=== PATIENT | female | born 1990 | race Two or more races ===

== ENCOUNTER → 2018-11-23 | Emergency (ER) | payer OTHER ==
[~2018-11-23] VITALS: Ht 170.2 cm; Wt 68.0 kg
[~2018-11-23] MED LIST: FIORICET TABLET1 TAB; NORFLEX100 MG PO; PEPCID20 MG PO; TENCON TABLET1 TAB PO; TORADOL10 MG PO; ZOFRAN4 MG PO
== END | disposition left against medical advice (07) ==
LOC: ER 10:58
DX: R10.2 Pelvic and perineal pain (principal)

== ENCOUNTER 2024-12-14 19:06 | Inpatient (IN) | payer OTHER ==
[~2024-12-14] VITALS: Ht 170.2 cm; Wt 65.8 kg
[2024-12-14] MEDS ORDERED: LOSARTAN POTASS25 MG (19:21)
[2024-12-14] MEDS ORDERED: ORPHENADRINE CITRATE 30 MG/ML AMPUL IM ONE (20:30)
[2024-12-14] MEDS ORDERED: KETOROLAC TROMETHAMINE 60 MG VIAL IM ONE ×2 (20:30→21:15)
[2024-12-14] MEDS ORDERED: ORPHENADRINE CITRATE 30 MG/ML AMPUL ONE (21:15)
[2024-12-14 22:08] LABS: BASO % 0.3 % (0.1-1.2); EOS # 0.04 (0.04-0.54); EOS % 0.3 % (0.7-7.0); HEMATOCRIT 36.3 % (34.1-44.9); HEMOGLOBIN 12.3 g/dL (11.2-15.7); LYMPH # 1.35 (1.18-3.74); LYMPH % 11.3 % (19.3-53.1); MEAN CORPUSCULAR HEMOGLOBIN 28.2 pg (25.6-32.2); MONO # 0.82 (0.24-0.82); MONO % 6.8 % (4.7-12.5); NEUT # 9.72 (1.56-6.13); PLATELET COUNT 258 K/uL (163-369); RED BLOOD COUNT 4.36 M/uL (3.93-5.22); RED CELL DISTRIBUTION WIDTH 13.1 % (11.6-14.4)
[2024-12-14 22:29] LABS: INR 1.05; PROTHROMBIN TIME 11.4 SECONDS (9.0-11.5)
[2024-12-14 22:39] LABS: URINE APPEARANCE Clear; URINE BILIRRUBIN Negative (NEGATIVE); URINE BLOOD Negative; URINE COLOR Yellow; URINE GLUCOSE Negative (NEGATIVE); URINE KETONE Negative (NEGATIVE); URINE LEUKOCYTE Negative; URINE NITRATE Negative; URINE PROTEIN Negative (NEGATIVE); URINE UROBILINOGEN 0.2 E.U./dl
[2024-12-14 22:42] LABS: URINE BACTERIA 227.6 uL (0.0-1933); URINE EPITHELIAL CELLS 7.7 uL (0.0-38.8); URINE RBC 2.7 uL (0.0-20.8)
[2024-12-14 22:54] LABS: ALBUMIN 3.6 gm/dL (3.4-5.0); BILIRUBIN TOTAL 0.78 mg/dL (0.3-1.2); CALCIUM 8.7 mg/dL (8.5-10.1); CREATININE SERUM 0.98 mg/dL (0.55-1.02); GFR 64.21; GLOBULINA 4.2 G/DL (2.4-3.5); POTASSIUM 3.87 mEq/L (3.5-5.1); TOTAL PROTEIN 7.8 gm/dL (6.4-8.2); URINE WBC 0.9 uL (0.0-23.2)
[2024-12-14] MEDS ORDERED: PIPERACILLIN/TAZOBACTAM SODIUM 3.375 GM VIAL IV ONE ×2 (23:22→23:30)
[2024-12-14] MEDS ORDERED: 0.9 % SODIUM CHLORIDE 1,000 ML IV ONE (23:30)
[2024-12-14 23:57] VITALS: O2SAT 97
[2024-12-15] MEDS ORDERED: MORPHINE SULFATE 4 MG/ML VIAL IV PRN (02:00)
[2024-12-15 05:00] VITALS: BP 116/83
[2024-12-15 05:10] LABS: BASO % 0.3 % (0.1-1.2); EOS # 0.06 (0.04-0.54); EOS % 0.7 % (0.7-7.0); HEMATOCRIT 34.3 % (34.1-44.9); HEMOGLOBIN 11.4 g/dL (11.2-15.7); LYMPH # 1.77 (1.18-3.74); LYMPH % 19.4 % (19.3-53.1); MEAN CORPUSCULAR HEMOGLOBIN 28.3 pg (25.6-32.2); MONO # 0.79 (0.24-0.82); MONO % 8.7 % (4.7-12.5); NEUT # 6.44 (1.56-6.13); NEUT % 70.7 % (34.0-71.1); PLATELET COUNT 234 K/uL (163-369); RED BLOOD COUNT 4.03 M/uL (3.93-5.22); RED CELL DISTRIBUTION WIDTH 13.2 % (11.6-14.4)
[2024-12-15 08:00] VITALS: BP 112/71
[2024-12-15 11:40] LABS: BASO % 0.3 % (0.1-1.2); EOS # 0.07 (0.04-0.54); EOS % 1.1 % (0.7-7.0); HEMATOCRIT 33.3 % (34.1-44.9); HEMOGLOBIN 11.2 g/dL (11.2-15.7); LYMPH # 1.07 (1.18-3.74); LYMPH % 17.4 % (19.3-53.1); MEAN CORPUSCULAR HEMOGLOBIN 28.3 pg (25.6-32.2); MONO % 9.8 % (4.7-12.5); NEUT # 4.37 (1.56-6.13); NEUT % 71.1 % (34.0-71.1); PLATELET COUNT 200 K/uL (163-369); RED BLOOD COUNT 3.96 M/uL (3.93-5.22); RED CELL DISTRIBUTION WIDTH 13.2 % (11.6-14.4)
[2024-12-15 16:52] VITALS: BP 134/82
[2024-12-15] MEDS ORDERED: ACETAMINOPHEN WITH CODEINE 1 UDTAB TABLET PO PRN (19:00)
[2024-12-15 23:50] VITALS: BP 113/78
[2024-12-16 08:40] VITALS: BP 115/76
[2024-12-16 16:34] LABS: RH POSITIVE
[2024-12-16 17:39] VITALS: BP 114/77
== END 2024-12-16 17:39 | disposition home or self-care (01) | DRG 833 ==
LOC: ER 20:31 → OB/GYN 12-15 01:47
PROVIDERS: General Practice; Obstetrics & Gynecology; ADMIT Obstetrics & Gynecology; ATTEND Obstetrics & Gynecology
PROC: BU4CZZZ Ultrasonography of Uterus and Ovaries (ICD-10-PCS; principal; 2024-12-14)
PROC: BU4CZZZ Ultrasonography of Uterus and Ovaries (ICD-10-PCS; 2024-12-16)
DX: O00.90 Unspecified ectopic pregnancy without intrauterine pregnancy (principal)

== ENCOUNTER 2024-12-21 13:32 | Outpatient (CLI) | payer OTHER ==
[~2024-12-21 13:32] MED LIST changes: +LOSARTAN POTASS25 MG
== END 2024-12-21 13:36 | disposition home or self-care (01) ==
LOC: LAB 13:32
PROVIDERS: ATTEND Obstetrics & Gynecology
DX: O00.90 Unspecified ectopic pregnancy without intrauterine pregnancy (principal)

== ENCOUNTER 2024-12-26 13:18 | Outpatient (CLI) | payer OTHER | END 2024-12-26 13:28 | disposition home or self-care (01) | LOC: LAB 13:18 | PROVIDERS: ATTEND Obstetrics & Gynecology | DX: O00-O9A Pregnancy, childbirth and the puerperium (principal) ==

== ENCOUNTER 2025-01-08 17:54 | Inpatient (IN) | payer OTHER ==
[~2025-01-08] VITALS: Ht 170.2 cm; Wt 65.8 kg
--- NOTE | 2025-01-08 18:00 | NUR ---
PTE ALERTA Y ORIENTADA X3 REFIERE VENIR A MICHAEL DEVIDO A QUE LA MISMA ETA PASANDO POR UN EMBARAZO ECTOPICO Y SE ESTA ATENDIENDO CON EL DR HAINES MIMOSO. PTE EXPRESA TENER DOLOR PELVIC DEL LADO DERECHO. SE MIDEN S/V Y SE UBICA.
[2025-01-08] MEDS ORDERED: MORPHINE SULFATE 4 MG/ML VIAL IV ONE (18:30)
[2025-01-08] MEDS ORDERED: FAMOTIDINE/PF 20 MG/2 ML VIAL IV ONE (18:30)
[2025-01-08] MEDS ORDERED: 0.9 % SODIUM CHLORIDE 500 ML IV ONE (18:30)
[2025-01-08] MEDS ORDERED: ONDANSETRON HCL 2 MG/ML VIAL IV ONE (18:30)
[2025-01-08 18:59] LABS: BASO % 0.3 % (0.1-1.2); EOS # 0.02 (0.04-0.54); EOS % 0.3 % (0.7-7.0); LYMPH # 1.46 (1.18-3.74); LYMPH % 22.7 % (19.3-53.1); MEAN PLATELET VOLUME 11.00 fl (9.4-12.4); MONO # 0.47 (0.24-0.82); MONO % 7.3 % (4.7-12.5); NEUT # 4.44 (1.56-6.13); NEUT % 69.2 % (34.0-71.1); RED CELL DISTRIBUTION WIDTH 13.2 % (11.6-14.4)
[2025-01-08 19:21] LABS: INR 1.1
--- NOTE | 2025-01-08 19:25 | NUR ---
SE ORIENTA A PTE SOBRE TX MEDICO Y LA MISMA REIFERE ENTENDER Y ACEPTAR. SE CANALIZA Y SE COLECTAN MUESTRAS DE LAB. SE ADMINSITRAN MEDS MIRI ORDEN MEDICA Y PTE NO PRESENTA REACCION. SE NOTIFICA SONO PENDIENTE.
[2025-01-08 19:27] LABS: ALT/SGPT 27.0 U/L (12-78); AST/SGOT 13.0 U/L (15-37); BILIRUBIN TOTAL 1.05 mg/dL (0.3-1.2); BUN CREA RATIO 20.0 (7.0-25.0); CREATININE SERUM 0.83 mg/dL (0.55-1.02); GFR 77.78; GLOBULINA 4.0 G/DL (2.4-3.5); GLUCOSE FASTING 94.0 mg/dL (65-100); HCG QUANTITATIVE 161.0 mUI/mL (1-3); OSMOLALITY SERUM 281.0 MOSM/KG (275-295)
--- NOTE | 2025-01-08 21:54 | NUR ---
SE ORIENTA PACIENTE SOBRE TX MEDICO Y EL MISMO REFIERE ENTENDER Y ACEPTAR ZO. SE PROCEDE A CLOVER MUESTRAS DE LAB. BAJO MEDIDAS ASEPTICAS.
[2025-01-08 21:56] LABS: BASO % 0.1 % (0.1-1.2); EOS # 0.02 (0.04-0.54); EOS % 0.2 % (0.7-7.0); LYMPH # 1.66 (1.18-3.74); LYMPH % 18.1 % (19.3-53.1); MEAN PLATELET VOLUME 10.90 fl (9.4-12.4); MONO # 0.75 (0.24-0.82); MONO % 8.2 % (4.7-12.5); NEUT # 6.71 (1.56-6.13); NEUT % 73.1 % (34.0-71.1); RED CELL DISTRIBUTION WIDTH 13.1 % (11.6-14.4)
[2025-01-08] MEDS ORDERED: CEFAZOLIN SODIUM 1,000 MG VIAL IV ONE (22:30)
[2025-01-09] MEDS ORDERED: MORPHINE SULFATE 4 MG/ML VIAL IV SCH
[2025-01-09 01:29] LABS: BASO % 0.2 % (0.1-1.2); EOS # 0.01 (0.04-0.54); EOS % 0.1 % (0.7-7.0); LYMPH # 1.09 (1.18-3.74); LYMPH % 12.8 % (19.3-53.1); MEAN PLATELET VOLUME 11.00 fl (9.4-12.4); MONO # 0.67 (0.24-0.82); MONO % 7.9 % (4.7-12.5); NEUT # 6.69 (1.56-6.13); NEUT % 78.6 % (34.0-71.1); RED CELL DISTRIBUTION WIDTH 13.3 % (11.6-14.4)
[2025-01-09 03:40] LABS: BASO % 0.2 % (0.1-1.2); EOS # 0.00 (0.04-0.54); EOS % 0.0 % (0.7-7.0); LYMPH # 1.09 (1.18-3.74); LYMPH % 16.4 % (19.3-53.1); MEAN PLATELET VOLUME 11.20 fl (9.4-12.4); MONO # 0.53 (0.24-0.82); MONO % 8.0 % (4.7-12.5); NEUT # 4.95 (1.56-6.13); NEUT % 74.6 % (34.0-71.1); RED CELL DISTRIBUTION WIDTH 13.3 % (11.6-14.4)
[2025-01-09] MEDS ORDERED: ONDANSETRON HCL 2 MG/ML VIAL IV SCH (03:50)
[2025-01-09] MEDS ORDERED: SIMETHICONE 125 MG CAPSULE PO SCH (03:51)
[2025-01-09] MEDS ORDERED: NAPROXEN 500 MG TABLET PO SCH (03:51)
[2025-01-09] MEDS ORDERED: MORPHINE SULFATE 4 MG/ML CARTRIDGE IV PRN (04:00)
[2025-01-09] MEDS ORDERED: RINGERS SOLUTION,LACTATED 1,000 ML IV SCH (04:00)
[2025-01-09] MEDS ORDERED: MORPHINE SULFATE 4 MG/ML VIAL IV ONE ×2 (04:20→06:00)
[2025-01-09 06:53] LABS: URINE APPEARANCE Clear; URINE BILIRRUBIN Negative (NEGATIVE); URINE BLOOD Negative; URINE COLOR Yellow; URINE GLUCOSE Negative (NEGATIVE); URINE KETONE Negative (NEGATIVE); URINE LEUKOCYTE Negative; URINE NITRATE Negative; URINE PROTEIN Negative (NEGATIVE); URINE UROBILINOGEN 0.2 E.U./dl
[2025-01-09 06:54] LABS: URINE BACTERIA 5.9 uL (0.0-1933); URINE RBC 5.7 uL (0.0-20.8); URINE WBC 4.7 uL (0.0-23.2)
[2025-01-09 07:01] LABS: URINE CAST 0.29 uL (0.0-1.40); URINE EPITHELIAL CELLS 0.0 uL (0.0-38.8)
[2025-01-09 09:19] VITALS: O2SAT 100
[2025-01-09 09:28] VITALS: BP 120/80
[2025-01-09] MEDS ORDERED: ACETAMINOPHEN WITH CODEINE 1 UDTAB TABLET PO PRN (09:30)
[2025-01-09 17:12] VITALS: BP 100/65
[2025-01-09 17:34] LABS: BASO % 0.3 % (0.1-1.2); EOS # 0.07 (0.04-0.54); EOS % 0.9 % (0.7-7.0); LYMPH # 1.14 (1.18-3.74); LYMPH % 15.4 % (19.3-53.1); MEAN PLATELET VOLUME 11.10 fl (9.4-12.4); MONO # 0.74 (0.24-0.82); MONO % 10.0 % (4.7-12.5); NEUT # 5.43 (1.56-6.13); NEUT % 73.1 % (34.0-71.1); RED CELL DISTRIBUTION WIDTH 13.6 % (11.6-14.4)
[2025-01-09 23:59] VITALS: BP 101/69
[2025-01-10 08:00] VITALS: BP 109/76
[2025-01-10] MEDS ORDERED: NAPROXEN500 MG PO (12:38)
[2025-01-10] MEDS ORDERED: ACETAMINOPHEN-1 EAC2 PO (12:38)
== END 2025-01-10 14:03 | disposition home or self-care (01) | DRG 819 ==
LOC: ER 17:54 → SEC-K 01-09 01:52 → OB/GYN 01-09 05:24 → O/R 01-09 12:30 → OB/GYN 01-09 12:32
PROVIDERS: General Practice; ADMIT Obstetrics & Gynecology; ATTEND Obstetrics & Gynecology
PROC: 0UT54ZZ Resection of Right Fallopian Tube, Percutaneous Endoscopic Approach (ICD-10-PCS; 2025-01-09)
PROC: 10D24ZZ Extraction of Products of Conception, Ectopic, Percutaneous Endoscopic Approach (ICD-10-PCS; principal; 2025-01-09 07:00)
DX: O00.101 Right tubal pregnancy without intrauterine pregnancy (principal)